=== PATIENT | male | born 1945 | race Caucasian/White ===

== ENCOUNTER → 2016-11-28 | Outpatient (CLI) | payer MEDICARE, OTHER ==
--- NOTE | 2016-11-28 16:59 | US ---
EXAMINATION TYPE: US kidneys/renal and bladder DATE OF EXAM: 11/28/2016 2:43 PM COMPARISON: CT abdomen pelvis 26 March 2016 CLINICAL HISTORY: D49.4 f/u staging CA Bladder. EXAM MEASUREMENTS: Right Kidney: 12.4 x 5.8 x 6.6 cm Left Kidney: 11.9 x 5.7 x 5.3 cm Right Kidney: visualized portions wnl, limited by rib shadowing Left Kidney: 4.5 x 4.5 x 4.9cm mid pole cystic focus compatible with simple cyst, no hydronephrosis Bladder: slightly irregularly thickened bladder wall, multiple echogenic foci along right posterior w all with largest measuring 0.6cm Bilateral Jets seen: yes There is no evidence for hydronephrosis at this point in time. No nephrolithiasis is seen. No eviden t hydronephrosis. IMPRESSION: Patent ureters. Cortical cyst left kidney. No evident hydronephrosis. Bladder wall thickening likely related to patient's bladder carcinoma.
== END | disposition home or self-care (01) ==
LOC: RADUSWWP 14:14
PROVIDERS: ATTEND Urology
DX: N28.1 Cyst of kidney, acquired (principal)
CPT/HCPCS: 76770

== ENCOUNTER 2018-06-21 03:06 | Inpatient (IN) | payer MEDICARE, OTHER ==
--- NOTE | 2018-06-21 03:27 | ED ---
General Adult HPI - General Stated complaint: L Hip pain Source: patient, EMS, RN notes reviewed Mode of arrival: EMS Limitations: physical limitation - History of Present Illness Initial comments: Dictation was produced using [employer] dictation software. please excuse any grammatical, word or spelling errors. Chief Complaint: 72-year-old male with multiple comorbidities including CVA, Parkinson's dementia presents with left hip pain. History of Present Illness: Patient is transferred by EMS. According to EMS patient was found to be on the ground. Patient currently resides in an Alzheimer's unit. He is followed ground. Staff thought that patient's hip. Shortened and externally rotated. Patient was found on the ground. He is noted to sleep on the ground when he ever he feels the environment is warm. Patient unable to provide detailed HPI secondary to mental status. Unable to obtain ROS secondary to baseline mental status. - Related Data Home Medications Medication Instructions Recorded Confirmed Aspirin 325 mg PO DAILY 04/14/16 07/30/16 Donepezil [Aricept] 10 mg PO HS 04/14/16 08/01/16 Furosemide [Lasix] 40 mg PO QAM 04/14/16 07/30/16 Levothyroxine Sodium [Synthroid] 25 mcg PO QAM 04/14/16 07/30/16 Memantine [Namenda] 5 mg PO BID 04/14/16 07/30/16 traZODone HCL [Desyrel] 50 mg PO HS 04/14/16 08/01/16 Bisacodyl [Dulcolax] 1 supp RECTAL DAILY PRN 05/28/16 07/30/16 Carbamide Peroxide [Debrox Otic] 1 drop BOTH EARS HS 05/28/16 07/30/16 Magnesium Hydroxide [Milk of 1 dose PO DAILY PRN 05/28/16 07/30/16 Magnesia] Melatonin 3 mg PO HS PRN 05/28/16 07/30/16 Previous Rx's Medication Instructions Recorded Acetaminophen Tab [Tylenol] 650 mg PO Q6HR PRN #0 tab 04/17/16 Albuterol Nebulized [Ventolin 2.5 mg INHALATION RT-QID nebu 04/17/16 Nebulized] Carbidopa-Levodopa 25-100 mg 1 each PO TID tab 04/17/16 [Sinemet 25-100 mg] traMADol HCL [Ultram] 50 mg PO Q8H PRN #20 tablet 04/17/16 Allergies Allergy/AdvReac Type Severity Reaction Status Date / Time hydromorphone HCl AdvReac Hallucinati Verified 06/21/18 03:23 [From Dilaudid] ons Review of Systems ROS Statement: Those systems with pertinent positive or pertinent negative responses have been documented in the HPI. ROS Other: All systems not noted in ROS Statement are negative. Past Medical History Past Medical History: CVA/TIA, Dementia, Eye Disorder, Memory Impairment, Osteoarthritis (OA), Sleep Apnea/CPAP/BIPAP, Thyroid Disorder Additional Past Medical History / Comment(s): SLEEP APNEA (DOES NOT USE CPAP). Bladder tumor. TIA. SHINGLES 2000, KIDNEY STONES. CONSTIPATION. SORES ON HIS BOTTOM is almost completely healed. Parkinsons disease, hx. of anemia, Glaucoma , walks with a walker. History of Any Multi-Drug Resistant Organisms: None Reported Past Surgical History: Hernia Repair Additional Past Surgical History / Comment(s): Hx. of Hydrocele, bladder surgery in Past Anesthesia/Blood Transfusion Reactions: No Reported Reaction Additional Past Anesthesia/Blood Transfusion Reaction / Comment(s): Claustrophobia Past Psychological History: No Psychological Hx Reported Smoking Status: Former smoker Past Alcohol Use History: None Reported Past Drug Use History: None Reported - Past Family History Mother Family Medical History: Myocardial Infarction ([place]) Father Additional Family Medical History / Comment(s): BRAIN ANUERYSM General Exam - General Exam Comments Initial Comments: PHYSICAL EXAM: General Impression: Alert and oriented x3, not in acute distress HEENT: Normocephalic atraumatic, extra-ocular movements intact, pupils equal and reactive to light bilaterally, mucous membranes moist. Cardiovascular: Heart regular rate and rhythm, S1&S2 audible, no murmurs, rubs or gallops Chest: Lungs clear to auscultation bilaterally, no rhonchi, no wheeze, no rales Abdomen: Bowel sounds present, abdomen soft, non-tender, non-distended, no organomegaly Musculoskeletal: Pulses present and equal in all extremities, no peripheral edema Motor: Moves all shunt is grossly, tenderness to the left lateral hip. Pain with manipulation of the left lower extremity compared to the right. Neurological: CN II-XII grossly intact, no focal motor or sensory deficits noted Skin: Intact with no visualized rashes Psych: Normal affect and mood Limitations: physical limitation Course Vital Signs 06/21/18 06/21/18 06/21/18 03:13 04:10 05:12 Temperature 97.0 F L Pulse Rate 89 74 78 Respiratory 17 16 14 Rate Blood Pressure 140/83 126/78 136/76 O2 Sat by Pulse 94 L 95 93 L Oximetry Medical Decision Making - Medical Decision Making ED course: 72-year-old male with multiple comorbidities presents with chief complaint of left hip pain. Patient has history of Parkinson's dementia. Vital signs upon arrival are within acceptable limits. EKGs benign. Given the patient had an unwitnessed fall we will perform trauma workup including computed tomography scan of the head, C-spine and lab evaluation.Imaging studies were obtained. There is acute intertrochanteric left femur fracture. Chest x-ray shows no acute processes. However there is mention of worsening pulmonary fibrosis. Computed tomography scan shows no acute processes however there is mention of progressive cerebral atrophy worse in the right temporal lobe. No acute issues with the cervical spine. Laboratory evaluation obtained. CBC, metabolic panel is obtained showing no acute processes. Pending rest of labs. Discussed patient case with Dr. Fontana of orthopedic surgery who across patient be admitted to medicine. Patient be admitted for left femur fracture. EKG Interpretation: A 12 lead EKG was obtained. It was interpreted by myself and attending physician. There is a P wave before every QRS complex. Rate is 87. Rhythm is sinus rhythm, KS interval 194, QS 94, QTc 457. QT is not prolonged. No ST segment depression or elevation. Overall, this EKG is unremarkable - Lab Data Result diagrams: 06/21/18 03:50 06/21/18 03:50 Lab Results 06/21/18 06/21/18 Range/Units 03:50 03:50 WBC 7.8 (3.8-10.6) k/uL RBC 4.27 L (4.30-5.90) m/uL Hgb 12.4 L (13.0-17.5) gm/dL Hct 38.4 L (39.0-53.0) % MCV 90.0 (80.0-100.0) fL MCH 29.1 (25.0-35.0) pg MCHC 32.4 (31.0-37.0) g/dL RDW 13.8 (11.5-15.5) % Plt Count 228 (150-450) k/uL Neutrophils % 80 % Lymphocytes % 12 % Monocytes % 5 % Eosinophils % 1 % Basophils % 1 % Neutrophils # 6.2 (1.3-7.7) k/uL Lymphocytes # 1.0 (1.0-4.8) k/uL Monocytes # 0.4 (0-1.0) k/uL Eosinophils # 0.1 (0-0.7) k/uL Basophils # 0.1 (0-0.2) k/uL Sodium 140 (137-145) mmol/L Potassium 4.6 (3.5-5.1) mmol/L Chloride 104 (98-107) mmol/L Carbon Dioxide 30 (22-30) mmol/L Anion Gap 6 mmol/L BUN 27 H (9-20) mg/dL Creatinine 0.82 (0.66-1.25) mg/dL Est GFR (CKD-EPI)AfAm >90 (>60 ml/min/1.73 sqM) Est GFR (CKD-EPI)NonAf 87 (>60 ml/min/1.73 sqM) Glucose 111 H (74-99) mg/dL Calcium 9.3 (8.4-10.2) mg/dL Magnesium 2.3 (1.6-2.3) mg/dL Disposition Clinical Impression: Fracture of hip Disposition: ADMITTED IP TO THIS HOSP Referrals: Yumi Mckinney MD [Primary Care Provider] - 1-2 days Decision Time: 05:25
--- NOTE | 2018-06-21 03:45 | CT ---
EXAMINATION TYPE: CT brain juan luque DATE OF EXAM: 06/21/2018 COMPARISON: None HISTORY: Headache. Neck pain. CT DLP: 1373.10 mGycm Automated exposure control for dose reduction was used. TECHNIQUE: CT scan of the head and cervical spine are performed without contrast. FINDINGS: There is cerebral cortical atrophy. There is no mass effect nor midline shift. There is n o evidence of intracranial hemorrhage. Atrophy appears more in the right posterior temporal lobe. The calvarium is intact. Cervical vertebra have normal alignment. Posterior elements are intact. There is mild spurring of the endplates. There is minor facet hypertrophy. Skull base is intact. IMPRESSION: No acute abnormality of the cervical spine. No fracture. There is cerebral atrophy and more in the right temporal lobe that has progressed compared to old CT scan of 03/26/2016. No acute intracranial abnormality.
--- NOTE | 2018-06-21 04:00 | XR ---
EXAMINATION TYPE: XR Hip LT and AP Pelvis DATE OF EXAM: 06/21/2018 COMPARISON: NONE HISTORY: Fall. Hip pain TECHNIQUE: A single AP view of the pelvis is obtained. Two views of the left hip are obtained. FINDINGS: The pelvic ring is intact. There is nondisplaced acute intertrochanteric fracture left femu r. There is no dislocation. Sacroiliac joints appear normal. There is fracture of the lesser trochant er. IMPRESSION: Acute intertrochanteric fracture left femur.
--- NOTE | 2018-06-21 04:01 | XR ---
EXAMINATION TYPE: XR chest 1V DATE OF EXAM: 06/21/2018 COMPARISON: 04/16/2016 HISTORY: Fall. Pain. TECHNIQUE: Single frontal view of the chest is obtained. FINDINGS: There is coarse interstitial density in the lungs. Heart size is normal. There are chest l [place]. Pulmonary vascularity is difficult to evaluate because of the lung disease. I see no definite p leural effusion. IMPRESSION: Pulmonary fibrosis. There is some progression compared to old exam. Acute mild heart carmencita lure is possible.
[2018-06-21 04:40] LABS: Basophils # (A) 0.1 k/uL (0-0.2); Basophils % (A) 1 %; Eosinophils # (A) 0.1 k/uL (0-0.7); Eosinophils % (A) 1 %; HCT 38.4 % (39.0-53.0); HGB 12.4 gm/dL (13.0-17.5); Lymphocytes % (A) 12 %; MCH 29.1 pg (25.0-35.0); MCHC 32.4 g/dL (31.0-37.0); Monocytes # (A) 0.4 k/uL (0-1.0); Monocytes % (A) 5 %; Neutrophils # (A) 6.2 k/uL (1.3-7.7); Neutrophils % (A) 80 %; Platelet Count 228 k/uL (150-450); RBC 4.27 m/uL (4.30-5.90); RDW 13.8 % (11.5-15.5); WBC 7.8 k/uL (3.8-10.6)
[2018-06-21 04:50] LABS: Anion Gap 6 mmol/L; Blood Urea Nitrogen 27 mg/dL (9-20); Calcium 9.3 mg/dL (8.4-10.2); Carbon Dioxide 30 mmol/L (22-30); Chloride 104 mmol/L (98-107); Glucose 111 mg/dL (74-99); Magnesium 2.3 mg/dL (1.6-2.3); Potassium 4.6 mmol/L (3.5-5.1); Sodium 140 mmol/L (137-145)
[2018-06-21] MEDS ORDERED: NALOXONE 0.4 MG/ML 1 ML VIAL IV PRN (05:23)
[2018-06-21] MEDS ORDERED: MORPHINE SULFATE 4 MG/ML SYRINGE IVP PRN (06:06)
[2018-06-21] MEDS ORDERED: SODIUM CHLORIDE 0.9% 1,000 ML IV SCH (06:15)
[2018-06-21 10:41] VITALS: BMI 27.8
[2018-06-21] MEDS: FAMOTIDINE 20 MG/2 ML VIAL IV SCH ×2 (10:54→23:04)
[2018-06-21 11:13] LABS: INR 1.1 (<1.2); Prothrombin Time 10.3 sec (9.0-12.0)
[2018-06-21] MEDS ORDERED: BISACODYL 10 MG SUPP RECTAL PRN (12:29)
[2018-06-21] MEDS ORDERED: MAGNESIUM HYDROXIDE 2,400 MG/10 ML CUP PO PRN (12:29)
[2018-06-21] MEDS ORDERED: ALBUTEROL NEBULIZED 2.5 MG/3 ML INHALATION PRN (12:29)
--- NOTE | 2018-06-21 13:47 | P.CNOR ---
History of Present Illness - [facility] Consult date: 06/21/18 Requesting physician: Nael Fontana Consult reason: fracture History of present illness: Patient is a 72-year-old male seen at bedside this afternoon. He was admitted through the emergency department early this morning after a fall resulted in a left hip fracture. He suffers from Alzheimer's and multiple medical morbidities. Communication is mainly through his at bedside. He has pain at the left hip as expected. Further current complaints and symptoms as well as review of systems are unobtainable due to his mental status. Past Medical History Past Medical History: CVA/TIA, Dementia, Eye Disorder, Memory Impairment, Osteoarthritis (OA), Sleep Apnea/CPAP/BIPAP, Thyroid Disorder Additional Past Medical History / Comment(s): SLEEP APNEA (DOES NOT USE CPAP). Bladder tumor. TIA. SHINGLES 2001, KIDNEY STONES. CONSTIPATION. SORES ON HIS BOTTOM is almost completely healed. Parkinsons disease, hx. of anemia, Glaucoma , walks with a walker. History of Any Multi-Drug Resistant Organisms: None Reported Past Surgical History: Hernia Repair Additional Past Surgical History / Comment(s): Hx. of Hydrocele, bladder surgery in Past Anesthesia/Blood Transfusion Reactions: No Reported Reaction Additional Past Anesthesia/Blood Transfusion Reaction / Comm: Claustrophobia Past Psychological History: No Psychological Hx Reported Additional Psychological History / Comment(s): DEMENTIA. USES WALKER BUT NEEDS ASSIST WELL. NEEDS TO ASSIST TO EAT. Non-compliant. Smoking Status: Former smoker Past Alcohol Use History: None Reported Additional Past Alcohol Use History / Comment(s): SMOKING HISTORY NOT AVAILABLE. Past Drug Use History: None Reported - Past Family History Mother Family Medical History: Myocardial Infarction ([place]) Father Additional Family Medical History / Comment(s): BRAIN ANUERYSM Medications and Allergies Home Medications Medication Instructions Recorded Confirmed Type Aspirin 325 mg PO DAILY 04/14/16 06/21/18 History Donepezil [Aricept] 10 mg PO HS 04/14/16 06/21/18 History Furosemide [Lasix] 40 mg PO QAM 04/14/16 06/21/18 History Levothyroxine Sodium [Synthroid] 25 mcg PO QAM 04/14/16 06/21/18 History traZODone HCL [Desyrel] 50 mg PO HS 04/14/16 06/21/18 History Acetaminophen Tab [Tylenol] 650 mg PO Q6HR PRN #0 tab 04/17/16 06/21/18 Rx Bisacodyl [Dulcolax] 10 mg RECTAL DAILY PRN 05/28/16 06/21/18 History Carbamide Peroxide [Debrox Otic] 2 drop RIGHT EAR HS 05/28/16 06/21/18 History Magnesium Hydroxide [Milk of 2,400 mg PO DAILY PRN 05/28/16 06/21/18 History Magnesia] Melatonin 3 mg PO HS 05/28/16 06/21/18 History Albuterol Nebulized [Ventolin 2.5 mg INHALATION RT-QID PRN 06/21/18 06/21/18 History Nebulized] Carbidopa-Levodopa 25-100 mg 1 tab PO TID 06/21/18 06/21/18 History [Sinemet 25-100 mg] Loratadine [Claritin] 10 mg PO DAILY 06/21/18 06/21/18 History Memantine [Namenda] 5 mg PO BID 06/21/18 06/21/18 History Natural Tears 2 drops BOTH EYES BID 06/21/18 06/21/18 History Polyethylene Glycol 3350 [Miralax] 17 gm PO HS 06/21/18 06/21/18 History Rasagiline Mesylate [Azilect] 1 mg PO DAILY 06/21/18 06/21/18 History Terazosin [Hytrin] 1 mg PO HS 06/21/18 06/21/18 History traMADol HCL [Ultram] 50 mg PO TID 06/21/18 06/21/18 History Allergies Allergy/AdvReac Type Severity Reaction Status Date / Time hydromorphone HCl AdvReac Hallucinati Verified 06/21/18 09:52 [From Dilaudid] ons Physical Examination Inspection of the left lower extremity shows no wounds, lacerations or deformity. Range of motion of the left hip is not tested due to the fracture. Neurovascular status appears to be grossly intact with motor and sensation throughout the left lower extremity. Calf appears to be soft and nontender. There is 2+ dorsalis pedis pulse present and less than 2 second capillary refill present. Results X-rays of the pelvis and left hip show a minimally displaced left intertrochanteric hip fracture. - Labs Labs: Abnormal Lab Results - Last 24 Hours (Table) 06/21/18 06/21/18 Range/Units 03:50 03:50 RBC 4.27 L (4.30-5.90) m/uL Hgb 12.4 L (13.0-17.5) gm/dL Hct 38.4 L (39.0-53.0) % BUN 27 H (9-20) mg/dL Glucose 111 H (74-99) mg/dL H & H 06/21/18 Range/Units 03:50 Hgb 12.4 L (13.0-17.5) gm/dL Hct 38.4 L (39.0-53.0) % Coagulation 06/21/18 Range/Units 03:50 INR 1.1 (<1.2) Result Diagrams: 06/21/18 03:50 06/21/18 03:50 - Diagnostic results Hip x-ray: report reviewed, image reviewed Assessment and Plan (1) Dementia Narrative/Plan: Plan will be to proceed with surgical intervention including a left IT nail/ intramedullary hip screw. Preoperative clearance has been requested from internal medicine. He will return to extended care facility postoperatively. Current Visit: Yes Status: Acute Code(s): F03.90 - UNSPECIFIED DEMENTIA WITHOUT BEHAVIORAL DISTURBANCE SNOMED Code(s): 76492182 (2) Alzheimer disease Current Visit: Yes Status: Acute Code(s): G30.9 - ALZHEIMER'S DISEASE, UNSPECIFIED; F02.80 - DEMENTIA IN OTH DISEASES CLASSD ELSWHR W/O BEHAVRL DISTURB SNOMED Code(s): 85973317 (3) Fracture of hip Current Visit: Yes Status: Acute Code(s): S72.009A - FRACTURE OF UNSP PART OF NECK OF UNSP FEMUR, INIT SNOMED Code(s): 584434712 Time with Patient: Less than 30
--- NOTE | 2018-06-21 14:17 | P.CONS ---
History of Present Illness - Reason for Consult Preoperative clearance - History of Present Illness 68-year-old pleasant gentleman the with a history of Lewy body dementia and Parkinson's fell while trying to get up from the bed at long term to go to bathroom. Denied any syncopal episode. Patient had an EKG which showed normal sinus rhythm patient had a course of trigeminy here on the telemetry. Patient denied any fever chills patient has a left femoral neck fracture. Patient denied any fever chills nausea vomiting. Patient's functionality is poor because of his Parkinson's and dementia no history of coronary artery disease or heart failure in the past Review of Systems REVIEW OF SYSTEMS: CONSTITUTIONAL: No fever, no malaise, no fatigue. HEENT: No recent visual problems or hearing problems. Denied any sore throat. CARDIOVASCULAR: No chest pain, orthopnea, PND, no palpitations, no syncope. PULMONARY: No shortness of breath, no cough, no hemoptysis. GASTROINTESTINAL: No diarrhea, no nausea, no vomiting, no abdominal pain. Normoactive bowel sounds. NEUROLOGICAL: No headaches, no weakness, no numbness. HEMATOLOGICAL: Denies any bleeding or petechiae. GENITOURINARY: Denies any burning micturition, frequency, or urgency. MUSCULOSKELETAL/RHEUMATOLOGICAL: Denies any joint pain, swelling, or any muscle pain. ENDOCRINE: Denies any polyuria or polydipsia. The rest of the 14-point review of systems is negative. Past Medical History Past Medical History: CVA/TIA, Dementia, Eye Disorder, Memory Impairment, Osteoarthritis (OA), Sleep Apnea/CPAP/BIPAP, Thyroid Disorder Additional Past Medical History / Comment(s): SLEEP APNEA (DOES NOT USE CPAP). Bladder tumor. TIA. SHINGLES 2000, KIDNEY STONES. CONSTIPATION. SORES ON HIS BOTTOM is almost completely healed. Parkinsons disease, hx. of anemia, Glaucoma , walks with a walker. History of Any Multi-Drug Resistant Organisms: None Reported Past Surgical History: Hernia Repair Additional Past Surgical History / Comment(s): Hx. of Hydrocele, bladder surgery in Past Anesthesia/Blood Transfusion Reactions: No Reported Reaction Additional Past Anesthesia/Blood Transfusion Reaction / Comm: Claustrophobia Past Psychological History: No Psychological Hx Reported Additional Psychological History / Comment(s): DEMENTIA. USES WALKER BUT NEEDS ASSIST WELL. NEEDS TO ASSIST TO EAT. Non-compliant. Smoking Status: Former smoker Past Alcohol Use History: None Reported Additional Past Alcohol Use History / Comment(s): SMOKING HISTORY NOT AVAILABLE. Past Drug Use History: None Reported - Past Family History Mother Family Medical History: Myocardial Infarction ([place]) Father Additional Family Medical History / Comment(s): BRAIN ANUERYSM Medications and Allergies Home Medications Medication Instructions Recorded Confirmed Type Aspirin 325 mg PO DAILY 04/14/16 06/21/18 History Donepezil [Aricept] 10 mg PO HS 04/14/16 06/21/18 History Furosemide [Lasix] 40 mg PO QAM 04/14/16 06/21/18 History Levothyroxine Sodium [Synthroid] 25 mcg PO QAM 04/14/16 06/21/18 History traZODone HCL [Desyrel] 50 mg PO HS 04/14/16 06/21/18 History Acetaminophen Tab [Tylenol] 650 mg PO Q6HR PRN #0 tab 04/17/16 06/21/18 Rx Bisacodyl [Dulcolax] 10 mg RECTAL DAILY PRN 05/28/16 06/21/18 History Carbamide Peroxide [Debrox Otic] 2 drop RIGHT EAR HS 05/28/16 06/21/18 History Magnesium Hydroxide [Milk of 2,400 mg PO DAILY PRN 05/28/16 06/21/18 History Magnesia] Melatonin 3 mg PO HS 05/28/16 06/21/18 History Albuterol Nebulized [Ventolin 2.5 mg INHALATION RT-QID PRN 06/21/18 06/21/18 History Nebulized] Carbidopa-Levodopa 25-100 mg 1 tab PO TID 06/21/18 06/21/18 History [Sinemet 25-100 mg] Loratadine [Claritin] 10 mg PO DAILY 06/21/18 06/21/18 History Memantine [Namenda] 5 mg PO BID 06/21/18 06/21/18 History Natural Tears 2 drops BOTH EYES BID 06/21/18 06/21/18 History Polyethylene Glycol 3350 [Miralax] 17 gm PO HS 06/21/18 06/21/18 History Rasagiline Mesylate [Azilect] 1 mg PO DAILY 06/21/18 06/21/18 History Terazosin [Hytrin] 1 mg PO HS 06/21/18 06/21/18 History traMADol HCL [Ultram] 50 mg PO TID 06/21/18 06/21/18 History Allergies Allergy/AdvReac Type Severity Reaction Status Date / Time hydromorphone HCl AdvReac Hallucinati Verified 06/21/18 09:52 [From Dilaudid] ons Physical Exam Vitals: Vital Signs Temp Pulse Pulse Resp BP BP Pulse Ox 06/21/18 07:09 97.9 F 80 16 130/79 93 L 06/21/18 06:16 98.6 F 72 16 137/80 97 06/21/18 05:12 78 14 136/76 93 L 06/21/18 04:10 74 16 126/78 95 06/21/18 03:13 97.0 F L 89 17 140/83 94 L Intake and Output 06/20/18 06/21/18 06/21/18 22:59 06:59 14:59 Intake Total 525 Balance 525 Intake: Intake, IV Titration 525 Amount Sodium Chloride 0.9% 1, 525 000 ml @ 75 mls/hr IV . [id number] [facility] Rx#:[id number] Other: Voiding Method Incontinent # Voids 1 Weight 92.986 kg 92.986 kg PHYSICAL EXAMINATION: GENERAL: The patient is alert and oriented x3, not in any acute distress. Well developed, well nourished. Poor historian mask like mface from has Parkinson's HEENT: Pupils are round and equally reacting to light. EOMI. No scleral icterus. No conjunctival pallor. Normocephalic, atraumatic. No pharyngeal erythema. No thyromegaly. CARDIOVASCULAR: S1 and S2 present. No murmurs, rubs, or gallops. PULMONARY: Chest is clear to auscultation, no wheezing or crackles. ABDOMEN: Soft, nontender, nondistended, normoactive bowel sounds. No palpable organomegaly. MUSCULOSKELETAL: No joint swelling or deformity. EXTREMITIES: No cyanosis, clubbing, or pedal edema. NEUROLOGICAL: Gross neurological examination did not reveal any focal deficits. SKIN: No rashes. Results CBC & Chem 7: 06/21/18 03:50 06/21/18 03:50 Labs: Abnormal Lab Results - Last 24 Hours (Table) 06/21/18 06/21/18 Range/Units 03:50 03:50 RBC 4.27 L (4.30-5.90) m/uL Hgb 12.4 L (13.0-17.5) gm/dL Hct 38.4 L (39.0-53.0) % BUN 27 H (9-20) mg/dL Glucose 111 H (74-99) mg/dL Assessment and Plan Plan: -Preoperative clearance for left hip surgery: Patient is low to intermediate risk with the it improves his functionality significantly patient can go in and get the surgery done. Patient had a mechanical fall. Considering his dementia recommend to avoid opiates, benzodiazepines barbiturates and anticholinergic medications patient pain is better controlled with his home dose of tramadol -Lube body dementia -Parkinson's controlled symptoms because of which are good and continue his tramadol -History of cerebrovascular accident and TIA in the past -Hypothyroidism -Sleep apnea For above-mentioned chronic medical problems patient will be resumed on appropriate home medications.
[2018-06-21] MEDS ORDERED: IV FLUID CONTINUATION 1,000 ML IV ONE (14:34)
[2018-06-21 15:28] LABS: Amorphous Sediment,Urine Rare /hpf; Appearance,Urine Turbid (Clear); Bilirubin,Urine Negative (Negative); Blood,Urine Negative (Negative); Color,Urine Yellow; Glucose,Urine (UA) Negative (Negative); Ketones,Urine Negative (Negative); Leukocyte Esterase,Urine Large (Negative); Mucus,Urine Rare /hpf; Nitrite,Urine Negative (Negative); Protein,Urine Trace (Negative); RBC,Urine 4 /hpf (0-5); Specific Gravity,Urine 1.016 (1.001-1.035); Urobilinogen,Urine <2.0 mg/dL (<2.0); WBC,Urine >182 /hpf (0-5)
[2018-06-21] MEDS ORDERED: PROPOFOL 10 MG/ML 20 ML VIAL IV ONE (15:41)
[2018-06-21] MEDS ORDERED: KETAMINE 10 MG/ML 20 ML VIAL ONE (15:41)
[2018-06-21] MEDS ORDERED: PHENYLEPHRINE-0.9% NACL SYG 1 MG/10 ML SYRINGE ONE (15:41)
[2018-06-21] MEDS ORDERED: fentaNYL (PF) 50 MCG/ML 2 ML AMP ONE (15:41)
[2018-06-21] MEDS ORDERED: SUCCINYLCHOLINE CHLORIDE 100 MG/5 ML SYR IV ONE (15:41)
[2018-06-21] MEDS ORDERED: MIDAZOLAM 2 MG/2 ML VIAL ONE (15:41)
[2018-06-21] MEDS ORDERED: SODIUM CHLORIDE 0.9% 50 ML with ceFAZolin 2,000 MG IV ONE ×2 (16:10)
[2018-06-21] MEDS ORDERED: ceFAZolin 1,000 MG in SODIUM CHLORIDE 0.9% 1,000 ML IRRIGATION ONE (16:30)
[2018-06-21] MEDS ORDERED: LACTATED RINGERS 1,000 ML IV ONE (16:45)
[2018-06-21] MEDS ORDERED: MORPHINE SULFATE 2 MG/ML SYRINGE IV PRN ×4 (18:04)
[2018-06-21] MEDS ORDERED: DIAZEPAM 5 MG TAB PO PRN (18:04)
[2018-06-21] MEDS ORDERED: HYDROcodone/APAP 5-325MG 1 EACH TAB PO PRN ×2 (18:04)
[2018-06-21] MEDS ORDERED: TEMAZEPAM 15 MG CAP PO PRN (18:04)
[2018-06-21] MEDS ORDERED: ONDANSETRON 4 MG/2 ML VIAL IVP PRN (18:04)
[2018-06-21] MEDS: traMADol 50 MG TAB PO SCH ×2 (19:08→23:03)
[2018-06-21] MEDS: LACTATED RINGERS 1,000 ML IV SCH (22:16)
--- NOTE | 2018-06-21 22:26 | OP ---
OPERATIVE REPORT DATE OF PROCEDURE: 06/21/2018. PREOPERATIVE DIAGNOSIS: Left intertrochanteric hip fracture. POSTOP DIAGNOSIS: Left intertrochanteric hip fracture. PROCEDURE PERFORMED: Intramedullary medullary hip screw fixation for left intertrochanteric hip fracture. SURGEON: Nael Fontana MD. OPTICAL ASSISTANT: Jose CASAREZ. ANESTHESIA: General endotracheal. ESTIMATED BLOOD LOSS: 100 mL. TOURNIQUET: None. DRAINS: None. COMPLICATIONS: None apparent. DISPOSITION: Postanesthesia care unit. INDICATIONS: Marcus is a very pleasant 72-year-old male. He does carry a medical diagnoses of Parkinson disease as well as dementia. He has been living in an assisted living facility for the last 2 years. He fell at the assisted living facility earlier today. He is brought via ambulance to [facility]. Workup including x-rays revealed a minimally displaced left intertrochanteric hip fracture. He does ambulate at the facility at his assisted living facility. Recommendation was for fixation of his left intertrochanteric hip fracture. The risks of the procedure were discussed with him and his in detail. These risks include, but are not limited to risk of infection, nerve damage, bleeding, pain, and a small risk of deep vein thrombosis which could lead to fatal pulmonary embolism. Further risks include lack of healing of the fracture, failure of the hardware, both of which could necessitate further operation. All of his and his 's questions were answered to their satisfaction. Appropriate informed consent was obtained. DESCRIPTION OF THE PROCEDURE: Patient identified in the preoperative holding area. Surgical site was marked by both the patient and myself. He was given 2 g of Ancef IV for prophylactic purposes. He was then transported to the operative suite. He was placed supine on the operating table. General anesthetic was then administered and dosed per the anesthesia without apparent complication. He was then placed onto the fracture table well-padded in preparation for surgery. The intertrochanteric hip fracture was then reduced with traction and rotation. When I was happy with the reduction we proceeded. The left lower extremity then prepped and draped in usual sterile fashion. Standard surgical pause undertaken to ensure that we were operating the correct site and that appropriate preoperative antibiotics were given. All staff were in agreement and we proceeded. The tip of the greater trochanter was identified via fluoroscopy. A 2-3 cm incision extending from the tip of the greater trochanter proximally was then made with a 10 blade scalpel. Dissection was then carried down sharply to the tensor fascia. The tensor fascia was incised in line with the incision. This gave me excellent exposure to the greater trochanter. The threaded guide pin was then placed at the medial aspect of the greater trochanter and then advanced down the medullary canal of the proximal femur. This was confirmed with fluoroscopic imaging. I then utilized a starting drill to gain access to the proximal femur. The ball-tipped guidewire was then placed down the canal of the femur. Again this was placement was confirmed with fluoroscopic imaging. I then proceeded to ream the femoral canal. I started with a 9 mm reamer and then incrementally increased up to a 13 mm reamer to accept the nail. I had the resources representative open an 11 mm x 180 mm x 125 degree Noel Gamma nail. This was assembled on the back table by the surgical instrument maker. This was then inserted over the ball-tipped guidewire. The ball-tipped guidewire was removed. I then proceeded with placement of the hip screw. A 2nd small stab incision was made on the lateral thigh. The threaded guide pin was then placed in the center of the femoral head on both AP and lateral views. The tip-apex distance was appropriate. I then measured for length. The measured for 95. The cannulated drill was then set for 95. It was then over drilled under fluoroscopic imaging. I then had the resources representative open a 10 mm x 95 mm partially threaded cannulated hip screw. This was placed over the threaded guide pin deep in the center of the femoral head. The tip-apex distance was appropriate. The screw had excellent purchase in bone. I then placed a set screw. It was tightened down completely and then backed off 1/4 turn to allow for compression of the fracture site. I then proceeded to place the distal interlocking screw. A third small stab incision was made on the lateral thigh. A 5 mm x 37.5 mm distal interlocking bolt was then placed using standard technique under fluoroscopic imaging. Final fluoroscopic images were then taken to ensure that the gamma nail was within the medullary canal. The hip screw was deepened into the center of the femoral head on both AP and lateral views. The tip-apex distance was appropriate. The distal static locking screw was through the nail and was of appropriate length. At this point time, no further work was deemed necessary. The jig was removed from the nail. The wounds were thoroughly irrigated with sterile saline solution with antibiotic added. The tensor fascia was closed with 0-Vicryl interrupted suture. The subcutaneous tissue was closed with 2-0 Vicryl interrupted suture. The skin was closed with stainless steel claude. Sterile compressive dressings were then applied. All sponge and needle counts were deemed correct prior to closure. The patient tolerated the procedure without apparent complication. He was transferred recovery room in stable condition. MMODL / IJN: [id number] /
[2018-06-21] MEDS: CARBIDOPA-LEVODOPA 25-100 MG 1 EACH TAB PO SCH ×2 (22:48→23:00)
[2018-06-21] MEDS: MELATONIN 3 MG TABLET PO SCH (23:00)
[2018-06-21] MEDS: ASPIRIN 325 MG TAB PO SCH (23:01)
[2018-06-21] MEDS: SENNOSIDES-DOCUSATE SODIUM 1 EACH TAB PO SCH (23:02)
[2018-06-21] MEDS: DONEPEZIL 10 MG TAB PO SCH (23:02)
[2018-06-21] MEDS: MEMANTINE 5 MG TAB PO SCH (23:05)
[2018-06-21] MEDS: POLYETHYLENE GLYCOL 3350 17 GM POWD.PACK PO SCH (23:05)
[2018-06-21] MEDS: ceFAZolin IN SWFI 2 GM/20 ML SYRINGE IVP SCH (23:46)
[2018-06-22] MEDS: DOXAZOSIN 1 MG TAB PO SCH ×2 (00:03→20:38)
[2018-06-22] MEDS: LEVOTHYROXINE 25 MCG TAB PO SCH (05:32)
--- NOTE | 2018-06-22 06:31 | FL ---
EXAMINATION TYPE: FL guidance operating room, XR Hip Complete LT DATE OF EXAM: 06/21/2018 CLINICAL HISTORY: Left hip fracture. TECHNIQUE: Fluoroscopy. Complete two-view left hip. COMPARISON: None. FINDINGS: Fluoroscopic guidance was provided during open reduction internal fixation procedure perfo rmed by orthopedic surgeon. A total of 31 seconds of fluoroscopic time was utilized during the proce dure and 3 spot intraoperative images are acquired. Images acquired show placement of intramedullary steph with distal transverse fixating screw and larger femoral necks fixating screw through suspected fracture of the proximal left femur not well seen on intraoperative films obtained. Alignment is felt satisfactory on images obtained. IMPRESSION: As Above.
[2018-06-22 08:24] LABS: Basophils % (A) 0 %; Eosinophils # (A) 0.2 k/uL (0-0.7); Eosinophils % (A) 2 %; HGB 11.3 gm/dL (13.0-17.5); Lymphocytes # (A) 0.9 k/uL (1.0-4.8); Lymphocytes % (A) 12 %; MCH 29.3 pg (25.0-35.0); MCHC 33.1 g/dL (31.0-37.0); MCV 88.7 fL (80.0-100.0); Mean Platelet Volume 6.8; Monocytes # (A) 0.6 k/uL (0-1.0); Monocytes % (A) 8 %; Neutrophils # (A) 6.1 k/uL (1.3-7.7); Neutrophils % (A) 77 %; Platelet Count 160 k/uL (150-450); RBC 3.84 m/uL (4.30-5.90); RDW 13.7 % (11.5-15.5); WBC 7.9 k/uL (3.8-10.6)
[2018-06-22] MEDS ORDERED: ASPIRIN 325 MG TAB PO SCH (09:00)
[2018-06-22] MEDS: LACTATED RINGERS 1,000 ML IV SCH ×2 (09:08→23:17)
--- NOTE | 2018-06-22 09:12 | P.PN ---
Subjective Progress Note Date: 06/22/18 Principal diagnosis: Left hip fracture Patient is seen at bedside this morning. He is postop day #1 from left IM hip screw for left IT hip fracture. He has pain at the surgical site as expected. Further symptoms unobtainable due to mental status. He is NAD. Objective - Vital Signs Vital signs: Vital Signs Temp 100.8 F H 06/22/18 00:15 Pulse 84 06/22/18 00:30 Resp 20 06/22/18 00:15 BP 106/67 06/22/18 00:30 Pulse Ox 93 L 06/21/18 18:45 Intake & Output 06/21/18 06/22/18 06/22/18 18:59 06:59 18:59 Intake Total 1426 150 Output Total 100 Balance 1326 150 Weight 92.986 kg Intake: IV 901 Intake, IV Titration 525 150 Amount Lactated Ringers 1,000 ml 150 @ 75 mls/hr IV .[id number] ROSI Rx#:[id number] Sodium Chloride 0.9% 1, 525 000 ml @ 75 mls/hr IV . [id number] ROSI Rx#:[id number] Output: Estimated Blood Loss 100 Other: Voiding Method Incontinent # Voids 1 1 - Exam Inspection reveals a benign surgical wound. There is no active bleeding or drainage. Neurovascular status is intact throughout the lower extremity with motor and sensation fully intact. Calf is soft and nontender. 2+ dorsalis pedis pulse and less than 2 second cap refill is present. - Constitutional General appearance: Present: no acute distress - Labs CBC & Chem 7: 06/22/18 07:32 06/21/18 03:50 Labs: Abnormal Lab Results - Last 24 Hours (Table) 06/21/18 06/22/18 Range/Units 15:10 07:32 RBC 3.84 L (4.30-5.90) m/uL Hgb 11.3 L (13.0-17.5) gm/dL Hct 34.0 L (39.0-53.0) % Lymphocytes # 0.9 L (1.0-4.8) k/uL Urine Protein Trace H (Negative) Ur Leukocyte Esterase Large H (Negative) Urine WBC >182 H (0-5) /hpf Urine WBC Clumps Many H (None) /hpf Amorphous Sediment Rare H (None) /hpf Urine Mucus Rare H (None) /hpf Microbiology - Last 24 Hours (Table) 06/21/18 15:10 Urine Culture - Preliminary Urine,Catheterized Assessment and Plan (1) Dementia Narrative/Plan: He will continue with routine postop orthopedic protocol including pain management, wound care, DVT prophylaxis and medical management. Expect that he will transfer to rehab in next few days. Current Visit: Yes Status: Acute Code(s): F03.90 - UNSPECIFIED DEMENTIA WITHOUT BEHAVIORAL DISTURBANCE SNOMED Code(s): 24198618 (2) Alzheimer disease Current Visit: Yes Status: Acute Code(s): G30.9 - ALZHEIMER'S DISEASE, UNSPECIFIED; F02.80 - DEMENTIA IN OTH DISEASES CLASSD ELSWHR W/O BEHAVRL DISTURB SNOMED Code(s): 57861462 (3) Fracture of hip Current Visit: Yes Status: Acute Code(s): S72.009A - FRACTURE OF UNSP PART OF NECK OF UNSP FEMUR, INIT SNOMED Code(s): 117705695 Time with Patient: Less than 30
[2018-06-22] MEDS: FAMOTIDINE 20 MG/2 ML VIAL IV SCH (09:16)
[2018-06-22] MEDS: CARBIDOPA-LEVODOPA 25-100 MG 1 EACH TAB PO SCH ×3 (09:20→20:38)
[2018-06-22] MEDS: ceFAZolin IN SWFI 2 GM/20 ML SYRINGE IVP SCH (09:20)
[2018-06-22] MEDS: ASPIRIN 325 MG TAB PO SCH ×2 (09:20→20:39)
[2018-06-22] MEDS: MULTIVITAMINS, THERA 1 EACH TAB PO SCH (09:20)
[2018-06-22] MEDS: traMADol 50 MG TAB PO SCH ×3 (09:20→20:39)
[2018-06-22] MEDS: MEMANTINE 5 MG TAB PO SCH ×2 (09:20→20:39)
--- NOTE | 2018-06-22 12:26 | XR ---
EXAMINATION TYPE: XR chest 1V DATE OF EXAM: 06/22/2018 CLINICAL HISTORY: Difficulty breathing and atelectasis progress study. TECHNIQUE: Single AP portable semiupright view of the chest is obtained. COMPARISON: Chest x-ray from one day earlier and older studies. FINDINGS: There is chronic parenchymal change without suspicious new focal airspace opacity, pleural effusion, or pneumothorax seen bilaterally. Osseous structures remain demineralized. Mass effect on the upper trachea right aspect could be product of thyroid goiter is redemonstrated. Cardiac silhouet te size is stable and within normal limits. IMPRESSION: Overall stable findings, chronic parenchymal changes without suspicious acute pulmonary process.
--- NOTE | 2018-06-22 13:38 | P.PN ---
Subjective 72-year-old admitted with the left ear fracture underwent intramedullary nailing , internal fixation yesterday scan confused because of the opiate analgesia which is being discontinued at this time. Objective - Vital Signs Vital signs: Vital Signs Temp 98.2 F 06/22/18 08:00 Pulse 78 06/22/18 08:00 Resp 14 06/22/18 08:00 BP 147/81 06/22/18 08:00 Pulse Ox 97 06/22/18 08:00 Intake & Output 06/21/18 06/22/18 06/22/18 18:59 06:59 18:59 Intake Total 1426 150 180 Output Total 100 100 Balance 1326 150 80 Weight 92.986 kg Intake: IV 901 Intake, IV Titration 525 150 Amount Lactated Ringers 1,000 ml 150 @ 75 mls/hr IV .[id number] ROSI Rx#:[id number] Sodium Chloride 0.9% 1, 525 000 ml @ 75 mls/hr IV . [id number] ROSI Rx#:[id number] Oral 180 Output: Urine 100 Estimated Blood Loss 100 Other: Voiding Method Incontinent Diaper Incontinent # Voids 1 1 - Exam PHYSICAL EXAMINATION: GENERAL: The patient is alert and confused, not in any acute distress. Well developed, well nourished. Poor historian mask like mface from has Parkinson's HEENT: Pupils are round and equally reacting to light. EOMI. No scleral icterus. No conjunctival pallor. Normocephalic, atraumatic. No pharyngeal erythema. No thyromegaly. CARDIOVASCULAR: S1 and S2 present. No murmurs, rubs, or gallops. PULMONARY: Chest is clear to auscultation, no wheezing or crackles. ABDOMEN: Soft, nontender, nondistended, normoactive bowel sounds. No palpable organomegaly. MUSCULOSKELETAL: No joint swelling or deformity. EXTREMITIES: No cyanosis, clubbing, or pedal edema. NEUROLOGICAL: Gross neurological examination did not reveal any focal deficits. SKIN: No rashes. - Labs CBC & Chem 7: 06/22/18 07:32 06/21/18 03:50 Labs: Abnormal Lab Results - Last 24 Hours (Table) 06/21/18 06/22/18 Range/Units 15:10 07:32 RBC 3.84 L (4.30-5.90) m/uL Hgb 11.3 L (13.0-17.5) gm/dL Hct 34.0 L (39.0-53.0) % Lymphocytes # 0.9 L (1.0-4.8) k/uL Urine Protein Trace H (Negative) Ur Leukocyte Esterase Large H (Negative) Urine WBC >182 H (0-5) /hpf Urine WBC Clumps Many H (None) /hpf Amorphous Sediment Rare H (None) /hpf Urine Mucus Rare H (None) /hpf Microbiology - Last 24 Hours (Table) 06/21/18 15:10 Urine Culture - Preliminary Urine,Catheterized Assessment and Plan Plan: - left hip surgery open reduction and internal fixation: Patient will be continued on tramadol and Tylenol for pain as opiate use diazepam causing significant confusion these will be discontinued. DVT prophylaxis per primary service although tramadol is not an ideal medication considering his Parkinson' s patient has been taking his medication tolerating well without any tremor. -Altered mental status secondary to toxic encephalopathy from pain medications and diazepam -Lube body dementia -Parkinson's controlled symptoms because of which are good and continue his tramadol -History of cerebrovascular accident and TIA in the past -Hypothyroidism -Sleep apnea
[2018-06-22] MEDS: ACETAMINOPHEN TAB 325 MG TAB PO PRN (15:08)
[2018-06-22] MEDS: POLYETHYLENE GLYCOL 3350 17 GM POWD.PACK PO SCH (20:38)
[2018-06-22] MEDS: DONEPEZIL 10 MG TAB PO SCH (20:39)
[2018-06-22] MEDS: MELATONIN 3 MG TABLET PO SCH (20:39)
[2018-06-22] MEDS: FAMOTIDINE 20 MG TAB PO SCH (20:39)
[2018-06-22] MEDS: SENNOSIDES-DOCUSATE SODIUM 1 EACH TAB PO SCH (20:39)
[2018-06-23] MEDS: ACETAMINOPHEN TAB 325 MG TAB PO PRN ×2 (04:29→14:36)
[2018-06-23] MEDS: LEVOTHYROXINE 25 MCG TAB PO SCH (05:34)
[2018-06-23] MEDS: ASPIRIN 325 MG TAB PO SCH ×2 (09:14→20:27)
[2018-06-23] MEDS: CARBIDOPA-LEVODOPA 25-100 MG 1 EACH TAB PO SCH ×3 (09:14→20:27)
[2018-06-23] MEDS: FAMOTIDINE 20 MG TAB PO SCH ×2 (09:14→20:27)
[2018-06-23] MEDS: MULTIVITAMINS, THERA 1 EACH TAB PO SCH (09:15)
[2018-06-23] MEDS: LACTATED RINGERS 1,000 ML IV SCH (09:15)
[2018-06-23] MEDS: traMADol 50 MG TAB PO SCH ×3 (09:15→20:27)
[2018-06-23] MEDS: MEMANTINE 5 MG TAB PO SCH ×2 (09:15→20:27)
[2018-06-23] MEDS ORDERED: MORPHINE ORAL SOLN 10 MG/5 ML CUP PO PRN ×2 (10:05→10:06)
--- NOTE | 2018-06-23 15:41 | P.PN ---
Subjective Progress Note Date: 06/23/18 Principal diagnosis: Left hip fracture Patient is seen at bedside this morning. He is postop day #2 from left IM hip screw for left IT hip fracture. He has pain at the surgical site as expected. Further symptoms unobtainable due to mental status. He is NAD. Objective - Vital Signs Vital signs: Vital Signs Temp 98.2 F 06/23/18 14:15 Pulse 78 06/23/18 14:15 Resp 16 06/23/18 14:15 BP 128/81 06/23/18 14:15 Pulse Ox 94 L 06/23/18 14:15 Intake & Output 06/22/18 06/23/18 06/23/18 18:59 06:59 18:59 Intake Total 755 240 575 Output Total 100 Balance 655 240 575 Weight 92.986 kg 92.986 kg Intake: Intake, IV Titration 575 575 Amount Lactated Ringers 1,000 ml 525 525 @ 75 mls/hr IV .[id number] ROSI Rx#:[id number] cefTRIAXone 1,000 mg In 50 50 Sodium Chloride 0.9% 50 ml @ 100 mls/hr IVPB Q24HR ROSI Rx#:[id number] Oral 180 240 Output: Urine 100 Other: Voiding Method Urinal Diaper Urinal Diaper Incontinent Diaper Incontinent Incontinent # Voids 1 1 2 - Exam Inspection reveals a benign surgical wound. There is no active bleeding or drainage. Neurovascular status is intact throughout the lower extremity with motor and sensation fully intact. Calf is soft and nontender. 2+ dorsalis pedis pulse and less than 2 second cap refill is present. - Constitutional General appearance: Present: no acute distress - Labs CBC & Chem 7: 06/22/18 07:32 06/21/18 03:50 Labs: Microbiology - Last 24 Hours (Table) 06/21/18 15:10 Urine Culture - Preliminary Urine,Catheterized Group D Enterococcus Assessment and Plan (1) Dementia Narrative/Plan: He will continue with routine postop orthopedic protocol including pain management, wound care, DVT prophylaxis and medical management. He can transfer from orthopedic standpoint Current Visit: Yes Status: Acute Code(s): F03.90 - UNSPECIFIED DEMENTIA WITHOUT BEHAVIORAL DISTURBANCE SNOMED Code(s): 72458825 (2) Alzheimer disease Current Visit: Yes Status: Acute Code(s): G30.9 - ALZHEIMER'S DISEASE, UNSPECIFIED; F02.80 - DEMENTIA IN OTH DISEASES CLASSD ELSWHR W/O BEHAVRL DISTURB SNOMED Code(s): 21292287 (3) Fracture of hip Current Visit: Yes Status: Acute Code(s): S72.009A - FRACTURE OF UNSP PART OF NECK OF UNSP FEMUR, INIT SNOMED Code(s): 662734268
--- NOTE | 2018-06-23 15:42 | P.PN ---
Subjective 72-year-old admitted with the left ear fracture underwent intramedullary nailing , internal fixation yesterday scan confused because of the opiate analgesia which is being discontinued at this time. 06/23/2018 Patient's urine showing group B enterococcus because of which his antibiotics will be switched to Unasyn. Confusion improved recommend to avoid opiate analgesia morphine was discontinued. Objective - Vital Signs Vital signs: Vital Signs Temp 98.2 F 06/23/18 14:15 Pulse 78 06/23/18 14:15 Resp 16 06/23/18 14:15 BP 128/81 06/23/18 14:15 Pulse Ox 94 L 06/23/18 14:15 Intake & Output 06/22/18 06/23/18 06/23/18 18:59 06:59 18:59 Intake Total 755 240 575 Output Total 100 Balance 655 240 575 Weight 92.986 kg 92.986 kg Intake: Intake, IV Titration 575 575 Amount Lactated Ringers 1,000 ml 525 525 @ 75 mls/hr IV .[id number] ROSI Rx#:[id number] cefTRIAXone 1,000 mg In 50 50 Sodium Chloride 0.9% 50 ml @ 100 mls/hr IVPB Q24HR ROSI Rx#:[id number] Oral 180 240 Output: Urine 100 Other: Voiding Method Urinal Diaper Urinal Diaper Incontinent Diaper Incontinent Incontinent # Voids 1 1 2 - Exam PHYSICAL EXAMINATION: GENERAL: The patient is alert and much less confused, not in any acute distress. Well developed, well nourished. Poor historian mask like mface from has Parkinson's HEENT: Pupils are round and equally reacting to light. EOMI. No scleral icterus. No conjunctival pallor. Normocephalic, atraumatic. No pharyngeal erythema. No thyromegaly. CARDIOVASCULAR: S1 and S2 present. No murmurs, rubs, or gallops. PULMONARY: Chest is clear to auscultation, no wheezing or crackles. ABDOMEN: Soft, nontender, nondistended, normoactive bowel sounds. No palpable organomegaly. MUSCULOSKELETAL: No joint swelling or deformity. EXTREMITIES: No cyanosis, clubbing, or pedal edema. NEUROLOGICAL: Gross neurological examination did not reveal any focal deficits. SKIN: No rashes. - Labs CBC & Chem 7: 06/22/18 07:32 06/21/18 03:50 Labs: Microbiology - Last 24 Hours (Table) 06/21/18 15:10 Urine Culture - Preliminary Urine,Catheterized Group D Enterococcus Assessment and Plan Plan: - left hip surgery open reduction and internal fixation: Patient will be continued on tramadol and Tylenol for pain as opiate use diazepam causing significant confusion these will be discontinued. DVT prophylaxis per primary service although tramadol is not an ideal medication considering his Parkinson' s patient has been taking his medication tolerating well without any tremor. -Possible urinary tract infection with group B enterococcus antibiotics in the form of Unasyn -Altered mental status secondary to toxic encephalopathy from pain medications and diazepam -Lewy body dementia -Parkinson's controlled symptoms because of which are good and continue his tramadol -History of cerebrovascular accident and TIA in the past -Hypothyroidism -Sleep apnea
[2018-06-23] MEDS: AMPICILLIN-SULBACTAM 3 GM in SODIUM CHLORIDE 0.9% 100 ML IVPB SCH (18:14)
[2018-06-23] MEDS: POLYETHYLENE GLYCOL 3350 17 GM POWD.PACK PO SCH (20:26)
[2018-06-23] MEDS: MELATONIN 3 MG TABLET PO SCH (20:27)
[2018-06-23] MEDS: DONEPEZIL 10 MG TAB PO SCH (20:27)
[2018-06-23] MEDS: SENNOSIDES-DOCUSATE SODIUM 1 EACH TAB PO SCH (20:27)
[2018-06-23] MEDS: DOXAZOSIN 1 MG TAB PO SCH (20:27)
[2018-06-24] MEDS: AMPICILLIN-SULBACTAM 3 GM in SODIUM CHLORIDE 0.9% 100 ML IVPB SCH ×2 (00:27→05:19)
[2018-06-24] MEDS: LEVOTHYROXINE 25 MCG TAB PO SCH (05:19)
[2018-06-24 07:32] VITALS: BP 147/92; PULSE 84; RESP 16; TEMP 98.9
[2018-06-24] MEDS: traMADol 50 MG TAB PO SCH (09:08)
[2018-06-24] MEDS: CARBIDOPA-LEVODOPA 25-100 MG 1 EACH TAB PO SCH (09:08)
[2018-06-24] MEDS: MEMANTINE 5 MG TAB PO SCH (09:08)
[2018-06-24] MEDS: FAMOTIDINE 20 MG TAB PO SCH (09:08)
[2018-06-24] MEDS: ASPIRIN 325 MG TAB PO SCH (09:08)
[2018-06-24] MEDS: MULTIVITAMINS, THERA 1 EACH TAB PO SCH (09:08)
--- NOTE | 2018-06-24 09:14 | P.PN ---
Subjective Progress Note Date: 06/24/18 Principal diagnosis: Left hip fracture Patient is seen at bedside this morning. He is postop day #3 from left IM hip screw for left IT hip fracture. He has pain at the surgical site as expected. Further symptoms unobtainable due to mental status. He is NAD. Objective - Vital Signs Vital signs: Vital Signs Temp 98.9 F 06/24/18 07:29 Pulse 84 06/24/18 07:29 Resp 16 06/24/18 07:29 BP 147/92 06/24/18 07:29 Pulse Ox 95 06/24/18 07:29 Intake & Output 06/23/18 06/24/18 06/24/18 18:59 06:59 18:59 Intake Total 575 Output Total 1 Balance 575 -1 Weight 92.986 kg Intake: Intake, IV Titration 575 Amount Lactated Ringers 1,000 ml 525 @ 75 mls/hr IV .[id number] ROSI Rx#:[id number] cefTRIAXone 1,000 mg In 50 Sodium Chloride 0.9% 50 ml @ 100 mls/hr IVPB Q24HR ROSI Rx#:[id number] Output: Urine 1 Other: Voiding Method Diaper Diaper Urinal Incontinent Incontinent Diaper Incontinent # Voids 2 1 - Exam Inspection reveals a benign surgical wound. There is no active bleeding or drainage. Neurovascular status is intact throughout the lower extremity with motor and sensation fully intact. Calf is soft and nontender. 2+ dorsalis pedis pulse and less than 2 second cap refill is present. - Constitutional General appearance: Present: no acute distress - Labs CBC & Chem 7: 06/22/18 07:32 06/21/18 03:50 Labs: Microbiology - Last 24 Hours (Table) 06/21/18 15:10 Urine Culture - Final Urine,Catheterized Aerococcus species Assessment and Plan (1) Dementia Narrative/Plan: He will continue with routine postop orthopedic protocol including pain management, wound care, DVT prophylaxis and medical management. He can transfer to [facility] from orthopedic standpoint. He may f/u in office in 2 weeks. May out at POD #14. Touch weightbearing Current Visit: Yes Status: Acute Code(s): F03.90 - UNSPECIFIED DEMENTIA WITHOUT BEHAVIORAL DISTURBANCE SNOMED Code(s): 67735306 (2) Alzheimer disease Current Visit: Yes Status: Acute Code(s): G30.9 - ALZHEIMER'S DISEASE, UNSPECIFIED; F02.80 - DEMENTIA IN OTH DISEASES CLASSD ELSWHR W/O BEHAVRL DISTURB SNOMED Code(s): 75473508 (3) Fracture of hip Current Visit: Yes Status: Acute Code(s): S72.009A - FRACTURE OF UNSP PART OF NECK OF UNSP FEMUR, INIT SNOMED Code(s): 314904452 Time with Patient: Less than 30
[2018-06-24] MEDS ORDERED: AMOXIC-POT CLAV 875-125MG 1 EACH TAB PO SCH (09:30)
[2018-06-24 11:46] LABS: Basophils % (A) 1 %; Eosinophils # (A) 0.1 k/uL (0-0.7); Eosinophils % (A) 2 %; HCT 29.2 % (39.0-53.0); HGB 10.2 gm/dL (13.0-17.5); Lymphocytes # (A) 0.9 k/uL (1.0-4.8); Lymphocytes % (A) 14 %; MCH 30.5 pg (25.0-35.0); MCHC 34.9 g/dL (31.0-37.0); MCV 87.4 fL (80.0-100.0); Mean Platelet Volume 7.6; Monocytes # (A) 0.5 k/uL (0-1.0); Monocytes % (A) 8 %; Neutrophils # (A) 4.9 k/uL (1.3-7.7); Neutrophils % (A) 75 %; Platelet Count 176 k/uL (150-450); RBC 3.34 m/uL (4.30-5.90); RDW 13.8 % (11.5-15.5); WBC 6.6 k/uL (3.8-10.6)
--- NOTE | 2018-06-24 15:32 | P.DS ---
Providers Date of admission: 06/21/18 05:23 Attending physician: Jenna Pool Consults: 06/21/18 04:09 Consult Physician Routine Consulting Provider: Nael Fontana Consult Reason/Comments: intertrochanteric fracture Do you want consulting provider notified?: Already Contacted 06/21/18 09:25 Consult Physician Urgent Consulting Provider: Jenna Pool Consult Reason/Comments: pre op clearance Do you want consulting provider notified?: Yes Primary care physician: Yumi Mckinney Hospital Course: 72-year-old admitted with the left ear fracture underwent intramedullary nailing , internal fixation yesterday scan confused because of the opiate analgesia which is being discontinued at this time. 06/23/2018 Patient's urine showing group B enterococcus because of which his antibiotics will be switched to Unasyn. Confusion improved recommend to avoid opiate analgesia morphine was discontinued. 06/24/2018 Patient has aerococcus in the urine patient will be discharged on Augmentin for 5 more days PHYSICAL EXAMINATION: GENERAL: The patient is alert and much less confused, not in any acute distress. Well developed, well nourished. Poor historian mask like mface from has Parkinson's HEENT: Pupils are round and equally reacting to light. EOMI. No scleral icterus. No conjunctival pallor. Normocephalic, atraumatic. No pharyngeal erythema. No thyromegaly. CARDIOVASCULAR: S1 and S2 present. No murmurs, rubs, or gallops. PULMONARY: Chest is clear to auscultation, no wheezing or crackles. ABDOMEN: Soft, nontender, nondistended, normoactive bowel sounds. No palpable organomegaly. MUSCULOSKELETAL: No joint swelling or deformity. EXTREMITIES: No cyanosis, clubbing, or pedal edema. NEUROLOGICAL: Gross neurological examination did not reveal any focal deficits. SKIN: No rashes. Assessment and Plan Plan: - left hip surgery open reduction and internal fixation:. DVT prophylaxis per primary service although tramadol is not an ideal medication considering his Parkinson's patient has been taking his medication tolerating well without any tremor. -Possible urinary tract infection with group B enterococcus antibiotics in the form of Unasyn -Altered mental status secondary to toxic encephalopathy from pain medications and diazepam resolved now patient is at his baseline -Lewy body dementia -Parkinson's controlled symptoms -History of cerebrovascular accident and TIA in the past -Hypothyroidism -Sleep apnea This is a progress note and discharge summary for orthopedic services Patient Condition at Discharge: Good Plan - Discharge Summary Discharge Rx Participant: Yes New Discharge Prescriptions: New Amoxic-Pot Clav 875-125Mg [Augmentin 875-125] 1 each PO Q12HR #10 tab Aspirin 325 mg PO BID tab Continue traZODone HCL [Desyrel] 50 mg PO HS Levothyroxine Sodium [Synthroid] 25 mcg PO QAM Donepezil [Aricept] 10 mg PO HS Acetaminophen Tab [Tylenol] 650 mg PO Q6HR PRN #0 tab PRN Reason: Mild Pain Or Fever > 100.5 Melatonin 3 mg PO HS Magnesium Hydroxide [Milk of Magnesia] 2,400 mg PO DAILY PRN PRN Reason: Constipation Carbamide Peroxide [Debrox Otic] 2 drop RIGHT EAR HS Bisacodyl [Dulcolax] 10 mg RECTAL DAILY PRN PRN Reason: Constipation Natural Tears 2 drops BOTH EYES BID Carbidopa-Levodopa 25-100 mg [Sinemet 25-100 mg] 1 tab PO TID Memantine [Namenda] 5 mg PO BID Albuterol Nebulized [Ventolin Nebulized] 2.5 mg INHALATION RT-QID PRN PRN Reason: Shortness Of Breath Terazosin [Hytrin] 1 mg PO HS Polyethylene Glycol 3350 [Miralax] 17 gm PO HS Rasagiline Mesylate [Azilect] 1 mg PO DAILY traMADol HCL [Ultram] 50 mg PO TID #14 tablet Discontinued Aspirin 325 mg PO DAILY Furosemide [Lasix] 40 mg PO QAM Loratadine [Claritin] 10 mg PO DAILY Discharge Medication List Donepezil [Aricept] 10 mg PO HS 04/14/16 [History] Levothyroxine Sodium [Synthroid] 25 mcg PO QAM 04/14/16 [History] traZODone HCL [Desyrel] 50 mg PO HS 04/14/16 [History] Acetaminophen Tab [Tylenol] 650 mg PO Q6HR PRN #0 tab 04/17/16 [Rx] Bisacodyl [Dulcolax] 10 mg RECTAL DAILY PRN 05/28/16 [History] Carbamide Peroxide [Debrox Otic] 2 drop RIGHT EAR HS 05/28/16 [History] Magnesium Hydroxide [Milk of Magnesia] 2,400 mg PO DAILY PRN 05/28/16 [History] Melatonin 3 mg PO HS 05/28/16 [History] Albuterol Nebulized [Ventolin Nebulized] 2.5 mg INHALATION RT-QID PRN 06/21/18 [ History] Carbidopa-Levodopa 25-100 mg [Sinemet 25-100 mg] 1 tab PO TID 06/21/18 [History] Memantine [Namenda] 5 mg PO BID 06/21/18 [History] Natural Tears 2 drops BOTH EYES BID 06/21/18 [History] Polyethylene Glycol 3350 [Miralax] 17 gm PO HS 06/21/18 [History] Rasagiline Mesylate [Azilect] 1 mg PO DAILY 06/21/18 [History] Terazosin [Hytrin] 1 mg PO HS 06/21/18 [History] Amoxic-Pot Clav 875-125Mg [Augmentin 875-125] 1 each PO Q12HR #10 tab 06/24/18 [ Rx] Aspirin 325 mg PO BID tab 06/24/18 [Rx] traMADol HCL [Ultram] 50 mg PO TID #14 tablet 06/24/18 [Rx] Follow up Appointment(s)/Referral(s): Yumi Mckinney MD [Primary Care Provider] - 1-2 Days Nael Fontana MD [STAFF PHYSICIAN] - 2 Weeks Activity/Diet/Wound Care/Special Instructions: Toe touch weightbearing May out at POD#14 F/U with Dr. Fontana in 14 days Discharge Disposition: TRANSFER TO SNF/ECF
== END 2018-06-24 14:44 | DRG 480 ==
LOC: EC 03:06 → 3SUR 05:23
PROVIDERS: ADMIT Hospitalist; ATTEND Hospitalist
PROC: 0QS736Z Reposition Left Upper Femur with Intramedullary Internal Fixation Device, Percutaneous Approach (ICD-10-PCS; principal; 2018-06-21 10:15)
DX: S72.142A Displaced intertrochanteric fracture of left femur, initial encounter for closed fracture (principal); G92 Toxic encephalopathy; N39.0 Urinary tract infection, site not specified; G31.83 Neurocognitive disorder with Lewy bodies; F02.80 Dementia in other diseases classified elsewhere, unspecified severity, without behavioral disturbance, psychotic disturbance, mood disturbance, and anxiety; G30.9 Alzheimer's disease, unspecified; D64.9 Anemia, unspecified; T40.605A Adverse effect of unspecified narcotics, initial encounter; T42.4X5A Adverse effect of benzodiazepines, initial encounter; B95.2 Enterococcus as the cause of diseases classified elsewhere; E03.9 Hypothyroidism, unspecified; G47.30 Sleep apnea, unspecified; K59.00 Constipation, unspecified; H40.9 Unspecified glaucoma; F40.240 Claustrophobia; M19.91 Primary osteoarthritis, unspecified site; Z79.82 Long term (current) use of aspirin; Z79.890 Hormone replacement therapy; Z79.891 Long term (current) use of opiate analgesic; Z79.899 Other long term (current) drug therapy; Z86.73 Personal history of transient ischemic attack (TIA), and cerebral infarction without residual deficits; Z87.442 Personal history of urinary calculi; Z86.19 Personal history of other infectious and parasitic diseases; Z85.51 Personal history of malignant neoplasm of bladder; Z87.891 Personal history of nicotine dependence; Z91.19 Patient's noncompliance with other medical treatment and regimen; Z88.5 Allergy status to narcotic agent; W19.XXXA Unspecified fall, initial encounter; Y92.099 Unspecified place in other non-institutional residence as the place of occurrence of the external cause; Z82.49 Family history of ischemic heart disease and other diseases of the circulatory system
CPT/HCPCS: 36415; 70450; 71045; 72125; 73502; 80048; 81001; 83735; 84484; 85025; 85610; 87086; 93005; 99285